=== PATIENT | male | born 1990 | race Caucasian/White ===

== ENCOUNTER 2024-04-13 19:57 | Emergency (ER) | payer SELFPAY ==
[2024-04-13 21:01] LABS: Influenza A by NAA Not Detected (NotDetected); Influenza B by NAA Not Detected (NotDetected); SARS-CoV-2 NAA Rapid Test Not Detected (NotDetected)
== END 2024-04-13 21:10 | disposition home or self-care (01) ==
LOC: BURERS 19:57
DX: B34.9 Viral infection, unspecified (principal); Z11.59 Encounter for screening for other viral diseases
CPT/HCPCS: 87081; 87430; 99283